=== PATIENT | female | born 1955 | race Caucasian/White ===

== ENCOUNTER 2017-09-18 08:32 | Emergency (ER) | payer BC, MEDICAID ==
[~2017-09-18] VITALS: Ht 160 cm; Wt 50.0 kg
[2017-09-18 08:54] VITALS: BP 105/70
[2017-09-18] MEDS ORDERED: PROPARACAINE OPHTH 0.5%, 15ML ONE (09:49)
== END 2017-09-18 10:27 | disposition home or self-care (01) ==
LOC: ED 09:00
DX: H01.001 Unspecified blepharitis right upper eyelid (principal); B95.8 Unspecified staphylococcus as the cause of diseases classified elsewhere
CPT/HCPCS: 99283